=== PATIENT | male | born 1940 | race Caucasian/White ===

== ENCOUNTER 2016-08-10 18:40 | Emergency (ER) | payer MEDICARE, BC ==
[2016-08-10 18:57] VITALS: BP 134/62
--- NOTE | 2016-08-10 19:06 | EDM.PDOC ---
ED HPI GENERAL MEDICAL PROBLEM - General Chief Complaint: Lower Extremity Injury/Pain Stated Complaint: SLIVER IN BIG TOE Time Seen by Provider: 08/10/16 19:06 - History of Present Illness INITIAL COMMENTS - FREE TEXT/NARRATIVE: 76-year-old male presents to the emergency room with a infection in his right great toe. Patient punctured this toe with a toothpick on Thursday he is unsure if all the toothpick came out. He has figured this would get better on its own however the swelling and tenderness is getting worse today he had streaking up his foot. The patient did try soaking his foot in Epsom salts and this did help a little. Patient is otherwise doing okay no fevers or chills he does not feel sick. 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 Pain Score (Numeric/FACES): 1 - Related Data Allergies Allergy/AdvReac Type Severity Reaction Status Date / Time No Known Allergies Allergy Verified 08/10/16 18:57 Home Meds: Home Meds Acetaminophen [Tylenol Extra Strength] 1,000 mg PO Q6H 01/02/15 [History] Aspirin [Adult Low Dose Aspirin EC] 81 mg PO DAILY 01/02/15 [History] Levothyroxine 137 mcg PO ACBREAKFAST 01/02/15 [History] Metoprolol Tartrate 12.5 mg PO BID 01/02/15 [History] Nitroglycerin [Nitrostat] 0.4 mg SL Q5M 01/02/15 [History] Simvastatin [Zocor] 20 mg PO BEDTIME 01/02/15 [History] Clindamycin Hcl [IJD: Clindamycin HCl] 300 mg PO .EVERY 6 HOURS #40 cap [Rx] Cyanocobalamin (Vitamin B-12) [B-12] 1,000 mcg PO DAILY 08/10/16 [History] Epoetin Redd [Procrit] 40,000 unit IJ ASDIRECTED 08/10/16 [History] Past Medical History HEENT History: Reports: Impaired Vision Cardiovascular History: Reports: Bypass, CAD, High Cholesterol, Hypertension Endocrine/Metabolic History: Reports: Hypothyroidism Hematologic History: 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 Denies: Chills, Fever Respiratory: Reports: No Symptoms Cardiovascular: Reports: No Symptoms GI/Abdominal: Reports: No Symptoms Genitourinary: Reports: No Symptoms Neurological: Reports: No Symptoms ED EXAM, GENERAL - Physical Exam Exam: See Below Exam Limited By: No Limitations General Appearance: Alert, No Apparent Distress Head: Atraumatic, Normocephalic Neck: Normal Inspection, Supple, Non-Tender, Full Range of Motion. No: Lymphadenopathy (L), Lymphadenopathy (R) Respiratory/Chest: No Respiratory Distress, Lungs Clear, Normal Breath Sounds Cardiovascular: Regular Rate, Rhythm, No Edema, No Murmur Extremities: Other (Examination of his right foot shows intact neurovascular status is got a tender red swollen great toe puncture site identified no foreign body residual seen at the puncture site no obvious abscess patient has some redness streaking up the dorsum of his foot not quite to the level of the ankle.) Neurological: Alert, Oriented Course - Vital Signs Last Recorded V/S: Last Vital Signs Temp 36.7 C 08/10/16 18:52 Pulse 81 08/10/16 18:52 Resp 18 08/10/16 18:52 BP 134/62 08/10/16 18:52 Pulse Ox 99 08/10/16 18:52 - Orders/Labs/Meds Orders: Active Orders 24 hr Category Date Time Status Toes Great Toe Rt T5 [CR] Stat Exams 08/10/16 19:16 Taken CULTURE WOUND [RM] Stat Lab 08/10/16 21:05 Received Labs: Laboratory Tests 08/10/16 08/10/16 08/10/16 Range/Units 19:20 19:20 19:20 WBC 9.45 H (4.23-9.07) K/mm3 RBC 2.48 L (4.63-6.08) M/mm3 Hgb 9.4 L (13.7-17.5) gm/L Hct 28.9 L (40.1-51.0) % MCV 116.5 H (79.0-92.2) fl MCH 37.9 H (25.7-32.2) pg MCHC 32.5 (32.2-35.5) g/dl RDW Std Deviation 80.9 H (35.1-43.9) fL Plt Count 120 L (163-337) K/mm3 MPV 9.5 (9.4-12.3) fl Neutrophils % (Manual) 70 H (40-60) % Band Neutrophils % 1 (0-10) % Lymphocytes % (Manual) 20 (20-40) % Atypical Lymphs % 0 % Monocytes % (Manual) 6 (2-10) % Eosinophils % (Manual) 2 (0.8-7.0) % Basophils % (Manual) 0 L (0.2-1.2) Metamyelocytes % 1 Toxic Granulation Moderate Dohle Bodies Few Platelet Estimate Decreased Plt Morphology Comment Normal Polychromasia Few Basophilic Stippling Few Anisocytosis 3+ marked Macrocytosis 3+ marked Tear Drop Cells Few Ovalocytes Few Acanthocytes (Spur) Few Schistocytes Few RBC Morph Comment Not Reportable ESR 62 H (0-15) mm/hr Sodium 137 (136-145) mEq/L Potassium 5.0 (3.5-5.1) mEq/L Chloride 103 (98-107) mEq/L Carbon Dioxide 25 (21-32) mEq/L Anion Gap 14.0 (5-15) BUN 17 (7-18) mg/dL Creatinine 1.2 (0.7-1.3) mg/dL Est Cr Clr Drug Dosing 48.96 mL/min Estimated GFR (MDRD) 59 (>60) mL/min BUN/Creatinine Ratio 14.2 (14-18) Glucose 132 H (83-115) mg/dL Calcium 8.4 L (8.5-10.1) mg/dL Total Bilirubin 0.8 (0.2-1.0) mg/dL AST 11 L (15-37) U/L ALT 11 L (16-63) U/L Alkaline Phosphatase 87 (46-116) U/L Total Protein 7.9 (6.4-8.2) g/dl Albumin 3.7 (3.4-5.0) g/dl Globulin 4.2 gm/dL Albumin/Globulin Ratio 0.9 L (1-2) Meds: Medications Discontinued Medications Generic Name Dose Route Start Last Admin Trade Name Zach PRN Reason Stop Dose Admin Clindamycin Phosphate 600 mg/ 104 mls @ 100 mls/hr 08/10/16 21:48 08/10/16 22 :16 Sodium Chloride IV 08/10/16 22:50 100 mls/hr ONETIME ONE Administration Lidocaine HCl 50 ml 08/10/16 20:34 08/10/16 22:18 Xylocaine 1% INJECT 08/10/16 20:35 50 ml ONETIME ONE Administration - Re-Assessments/Exams Free Text/Narrative Re-Assessment/Exam: 08/10/16 21:46 X-ray reviewed which shows a suspected foreign body just to the radial side of the mid proximal phalanx. I did do a digital block opened up the puncture wound could not find the toothpick or any fragments. Did get some exudative material out this is sent for culture and sensitivity. Patient's case discussed with Dr. Cline who does not do stuff like this. Case discussed with Dr. Funes orthopedic data migration lead at [facility] in [place] as we don't have anybody on-call for orthopedics who recommends more formal incision and drainage in the morning. We' ll give him a dose of IV clindamycin now and then the patient will follow up at [facility] at 8:00 tomorrow morning. Departure - Departure Time of Disposition: 23:32 Disposition: Home, Self-Care 01 Clinical Impression: Splinter of toe of right foot with infection, Cellulitis of right foot - Discharge Information Prescriptions: Clindamycin Hcl [IJD: Clindamycin HCl] 300 mg PO .EVERY 6 HOURS #40 cap Referrals: Ankit Sadler MD [Primary Care Provider] - Forms: ED Department Discharge Additional Instructions: ED HPI GENERAL MEDICAL PROBLEM - General Chief Complaint: Lower Extremity Injury/Pain Stated Complaint: SLIVER IN BIG TOE Time Seen by Provider: 08/10/16 19:06 - History of Present Illness INITIAL COMMENTS - FREE TEXT/NARRATIVE: 76-year-old male presents to the emergency room with a infection in his right great toe. Patient punctured this toe with a toothpick on Thursday he is unsure if all the toothpick came out. He has figured this would get better on its own however the swelling and tenderness is getting worse today he had streaking up his foot. The patient did try soaking his foot in Epsom salts and this did help a little. Patient is otherwise doing okay no fevers or chills he does not feel sick. 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 Pain Score (Numeric/FACES): 1 - Related Data Allergies Allergy/AdvReac Type Severity Reaction Status Date / Time No Known Allergies Allergy Verified 08/10/16 18:57 Home Meds: Home Meds Acetaminophen [Tylenol Extra Strength] 1,000 mg PO Q6H 01/02/15 [History] Aspirin [Adult Low Dose Aspirin EC] 81 mg PO DAILY 01/02/15 [History] Levothyroxine 137 mcg PO ACBREAKFAST 01/02/15 [History] Metoprolol Tartrate 12.5 mg PO BID 01/02/15 [History] Nitroglycerin [Nitrostat] 0.4 mg SL Q5M 01/02/15 [History] Simvastatin [Zocor] 20 mg PO BEDTIME 01/02/15 [History] Clindamycin Hcl [IJD: Clindamycin HCl] 300 mg PO .EVERY 6 HOURS #40 cap [Rx] Cyanocobalamin (Vitamin B-12) [B-12] 1,000 mcg PO DAILY 08/10/16 [History] Epoetin Redd [Procrit] 40,000 unit IJ ASDIRECTED 08/10/16 [History] Past Medical History HEENT History: Reports: Impaired Vision Cardiovascular History: Reports: Bypass, CAD, High Cholesterol, Hypertension Endocrine/Metabolic History: Reports: Hypothyroidism Hematologic History: 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 Denies: Chills, Fever Respiratory: Reports: No Symptoms Cardiovascular: Reports: No Symptoms GI/Abdominal: Reports: No Symptoms Genitourinary: Reports: No Symptoms Neurological: Reports: No Symptoms ED EXAM, GENERAL - Physical Exam Exam: See Below Exam Limited By: No Limitations General Appearance: Alert, No Apparent Distress Head: Atraumatic, Normocephalic Neck: Normal Inspection, Supple, Non-Tender, Full Range of Motion. No: Lymphadenopathy (L), Lymphadenopathy (R) Respiratory/Chest: No Respiratory Distress, Lungs Clear, Normal Breath Sounds Cardiovascular: Regular Rate, Rhythm, No Edema, No Murmur Extremities: Other (Examination of his right foot shows intact neurovascular status is got a tender red swollen great toe puncture site identified no foreign body residual seen at the puncture site no obvious abscess patient has some redness streaking up the dorsum of his foot not quite to the level of the ankle.) Neurological: Alert, Oriented Course - Vital Signs Last Recorded V/S: Last Vital Signs Temp 36.7 C 08/10/16 18:52 Pulse 81 08/10/16 18:52 Resp 18 08/10/16 18:52 BP 134/62 08/10/16 18:52 Pulse Ox 99 08/10/16 18:52 - Orders/Labs/Meds Orders: Active Orders 24 hr Category Date Time Status Toes Great Toe Rt T5 [CR] Stat Exams 08/10/16 19:16 Taken Labs: Laboratory Tests 08/10/16 08/10/16 08/10/16 Range/Units 19:20 19:20 19:20 WBC 9.45 H (4.23-9.07) K/mm3 RBC 2.48 L (4.63-6.08) M/mm3 Hgb 9.4 L (13.7-17.5) gm/L Hct 28.9 L (40.1-51.0) % MCV 116.5 H (79.0-92.2) fl MCH 37.9 H (25.7-32.2) pg MCHC 32.5 (32.2-35.5) g/dl RDW Std Deviation 80.9 H (35.1-43.9) fL Plt Count 120 L (163-337) K/mm3 MPV 9.5 (9.4-12.3) fl Neutrophils % (Manual) 70 H (40-60) % Band Neutrophils % 1 (0-10) % Lymphocytes % (Manual) 20 (20-40) % Atypical Lymphs % 0 % Monocytes % (Manual) 6 (2-10) % Eosinophils % (Manual) 2 (0.8-7.0) % Basophils % (Manual) 0 L (0.2-1.2) Metamyelocytes % 1 Toxic Granulation Moderate Dohle Bodies Few Platelet Estimate Decreased Plt Morphology Comment Normal Polychromasia Few Basophilic Stippling Few Anisocytosis 3+ marked Macrocytosis 3+ marked Tear Drop Cells Few Ovalocytes Few Acanthocytes (Spur) Few Schistocytes Few RBC Morph Comment Not Reportable ESR 62 H (0-15) mm/hr Sodium 137 (136-145) mEq/L Potassium 5.0 (3.5-5.1) mEq/L Chloride 103 (98-107) mEq/L Carbon Dioxide 25 (21-32) mEq/L Anion Gap 14.0 (5-15) BUN 17 (7-18) mg/dL Creatinine 1.2 (0.7-1.3) mg/dL Est Cr Clr Drug Dosing 48.96 mL/min Estimated GFR (MDRD) 59 (>60) mL/min BUN/Creatinine Ratio 14.2 (14-18) Glucose 132 H (83-115) mg/dL Calcium 8.4 L (8.5-10.1) mg/dL Total Bilirubin 0.8 (0.2-1.0) mg/dL AST 11 L (15-37) U/L ALT 11 L (16-63) U/L Alkaline Phosphatase 87 (46-116) U/L Total Protein 7.9 (6.4-8.2) g/dl Albumin 3.7 (3.4-5.0) g/dl Globulin 4.2 gm/dL Albumin/Globulin Ratio 0.9 L (1-2) Meds: Medications Discontinued Medications Generic Name Dose Route Start Last Admin Trade Name Freq PRN Reason Stop Dose Admin Clindamycin Phosphate 600 mg/ 104 mls @ 100 mls/hr 08/10/16 21:48 08/10/16 22 :16 Sodium Chloride IV 08/10/16 22:50 100 mls/hr ONETIME ONE Administration Lidocaine HCl 50 ml 08/10/16 20:34 08/10/16 22:18 Xylocaine 1% INJECT 08/10/16 20:35 50 ml ONETIME ONE Administration - Re-Assessments/Exams Free Text/Narrative Re-Assessment/Exam: 08/10/16 21:46 X-ray reviewed which shows a suspected foreign body just to the radial side of the mid proximal phalanx. I did do a digital block opened up the puncture wound could not find the toothpick or any fragments. Did get some exudative material out this is sent for culture and sensitivity. Patient's case discussed with Dr. Cline who does not do stuff like this. Case discussed with Dr. Funes orthopedic data migration lead at [facility] in [place] as we don't have anybody on-call for orthopedics who recommends more formal incision and drainage in the morning. We' ll give him a dose of IV clindamycin now and then the patient will follow up at [facility] at 8:00 tomorrow morning. Departure - Departure Disposition: Home, Self-Care 01 Clinical Impression: Splinter of toe of right foot with infection, Cellulitis of right foot - Discharge Information Prescriptions: Clindamycin Hcl [IJD: Clindamycin HCl] 300 mg PO .EVERY 6 HOURS #40 cap Forms: ED Department Discharge - My Orders Last 24 Hours: My Active Orders 08/10/16 19:16 Toes Great Toe Rt T5 [CR] Stat - Assessment/Plan Last 24 Hours: My Active Orders 08/10/16 19:16 Toes Great Toe Rt T5 [CR] Stat ED HPI GENERAL MEDICAL PROBLEM - General Chief Complaint: Lower Extremity Injury/Pain Stated Complaint: SLIVER IN BIG TOE Time Seen by Provider: 08/10/16 19:06 - History of Present Illness INITIAL COMMENTS - FREE TEXT/NARRATIVE: 76-year-old male presents to the emergency room with a infection in his right great toe. Patient punctured this toe with a toothpick on Thursday he is unsure if all the toothpick came out. He has figured this would get better on its own however the swelling and tenderness is getting worse today he had streaking up his foot. The patient did try soaking his foot in Epsom salts and this did help a little. Patient is otherwise doing okay no fevers or chills he does not feel sick. 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 Pain Score (Numeric/FACES): 1 - Related Data Allergies Allergy/AdvReac Type Severity Reaction Status Date / Time No Known Allergies Allergy Verified 08/10/16 18:57 Home Meds: Home Meds Acetaminophen [Tylenol Extra Strength] 1,000 mg PO Q6H 01/02/15 [History] Aspirin [Adult Low Dose Aspirin EC] 81 mg PO DAILY 01/02/15 [History] Levothyroxine 137 mcg PO ACBREAKFAST 01/02/15 [History] Metoprolol Tartrate 12.5 mg PO BID 01/02/15 [History] Nitroglycerin [Nitrostat] 0.4 mg SL Q5M 01/02/15 [History] Simvastatin [Zocor] 20 mg PO BEDTIME 01/02/15 [History] Clindamycin Hcl [IJD: Clindamycin HCl] 300 mg PO .EVERY 6 HOURS #40 cap [Rx] Cyanocobalamin (Vitamin B-12) [B-12] 1,000 mcg PO DAILY 08/10/16 [History] Epoetin Redd [Procrit] 40,000 unit IJ ASDIRECTED 08/10/16 [History] Past Medical History HEENT History: Reports: Impaired Vision Cardiovascular History: Reports: Bypass, CAD, High Cholesterol, Hypertension Endocrine/Metabolic History: Reports: Hypothyroidism Hematologic History: 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 Denies: Chills, Fever Respiratory: Reports: No Symptoms Cardiovascular: Reports: No Symptoms GI/Abdominal: Reports: No Symptoms Genitourinary: Reports: No Symptoms Neurological: Reports: No Symptoms ED EXAM, GENERAL - Physical Exam Exam: See Below Exam Limited By: No Limitations General Appearance: Alert, No Apparent Distress Head: Atraumatic, Normocephalic Neck: Normal Inspection, Supple, Non-Tender, Full Range of Motion. No: Lymphadenopathy (L), Lymphadenopathy (R) Respiratory/Chest: No Respiratory Distress, Lungs Clear, Normal Breath Sounds Cardiovascular: Regular Rate, Rhythm, No Edema, No Murmur Extremities: Other (Examination of his right foot shows intact neurovascular status is got a tender red swollen great toe puncture site identified no foreign body residual seen at the puncture site no obvious abscess patient has some redness streaking up the dorsum of his foot not quite to the level of the ankle.) Neurological: Alert, Oriented Course - Vital Signs Last Recorded V/S: Last Vital Signs Temp 36.7 C 08/10/16 18:52 Pulse 81 08/10/16 18:52 Resp 18 08/10/16 18:52 BP 134/62 08/10/16 18:52 Pulse Ox 99 08/10/16 18:52 - Orders/Labs/Meds Orders: Active Orders 24 hr Category Date Time Status Toes Great Toe Rt T5 [CR] Stat Exams 08/10/16 19:16 Taken Labs: Laboratory Tests 08/10/16 08/10/16 08/10/16 Range/Units 19:20 19:20 19:20 WBC 9.45 H (4.23-9.07) K/mm3 RBC 2.48 L (4.63-6.08) M/mm3 Hgb 9.4 L (13.7-17.5) gm/L Hct 28.9 L (40.1-51.0) % MCV 116.5 H (79.0-92.2) fl MCH 37.9 H (25.7-32.2) pg MCHC 32.5 (32.2-35.5) g/dl RDW Std Deviation 80.9 H (35.1-43.9) fL Plt Count 120 L (163-337) K/mm3 MPV 9.5 (9.4-12.3) fl Neutrophils % (Manual) 70 H (40-60) % Band Neutrophils % 1 (0-10) % Lymphocytes % (Manual) 20 (20-40) % Atypical Lymphs % 0 % Monocytes % (Manual) 6 (2-10) % Eosinophils % (Manual) 2 (0.8-7.0) % Basophils % (Manual) 0 L (0.2-1.2) Metamyelocytes % 1 Toxic Granulation Moderate Dohle Bodies Few Platelet Estimate Decreased Plt Morphology Comment Normal Polychromasia Few Basophilic Stippling Few Anisocytosis 3+ marked Macrocytosis 3+ marked Tear Drop Cells Few Ovalocytes Few Acanthocytes (Spur) Few Schistocytes Few RBC Morph Comment Not Reportable ESR 62 H (0-15) mm/hr Sodium 137 (136-145) mEq/L Potassium 5.0 (3.5-5.1) mEq/L Chloride 103 (98-107) mEq/L Carbon Dioxide 25 (21-32) mEq/L Anion Gap 14.0 (5-15) BUN 17 (7-18) mg/dL Creatinine 1.2 (0.7-1.3) mg/dL Est Cr Clr Drug Dosing 48.96 mL/min Estimated GFR (MDRD) 59 (>60) mL/min BUN/Creatinine Ratio 14.2 (14-18) Glucose 132 H (83-115) mg/dL Calcium 8.4 L (8.5-10.1) mg/dL Total Bilirubin 0.8 (0.2-1.0) mg/dL AST 11 L (15-37) U/L ALT 11 L (16-63) U/L Alkaline Phosphatase 87 (46-116) U/L Total Protein 7.9 (6.4-8.2) g/dl Albumin 3.7 (3.4-5.0) g/dl Globulin 4.2 gm/dL Albumin/Globulin Ratio 0.9 L (1-2) Meds: Medications Discontinued Medications Generic Name Dose Route Start Last Admin Trade Name Freq PRN Reason Stop Dose Admin Clindamycin Phosphate 600 mg/ 104 mls @ 100 mls/hr 08/10/16 21:48 08/10/16 22 :16 Sodium Chloride IV 08/10/16 22:50 100 mls/hr ONETIME ONE Administration Lidocaine HCl 50 ml 08/10/16 20:34 08/10/16 22:18 Xylocaine 1% INJECT 08/10/16 20:35 50 ml ONETIME ONE Administration - Re-Assessments/Exams Free Text/Narrative Re-Assessment/Exam: 08/10/16 21:46 X-ray reviewed which shows a suspected foreign body just to the radial side of the mid proximal phalanx. I did do a digital block opened up the puncture wound could not find the toothpick or any fragments. Did get some exudative material out this is sent for culture and sensitivity. Patient's case discussed with Dr. Cline who does not do stuff like this. Case discussed with Dr. Funes orthopedic data migration lead at [facility] in [place] as we don't have anybody on-call for orthopedics who recommends more formal incision and drainage in the morning. We' ll give him a dose of IV clindamycin now and then the patient will follow up at [facility] at 8:00 tomorrow morning. Departure - Departure Disposition: Home, Self-Care Clinical Impression: Splinter of toe of right foot with infection, Cellulitis of right foot - Discharge Information Prescriptions: Clindamycin Hcl [IJD: Clindamycin HCl] 300 mg PO .EVERY 6 HOURS #40 cap Forms: ED Department Discharge - My Orders Last 24 Hours: My Active Orders 08/10/16 19:16 Toes Great Toe Rt T5 [CR] Stat - Assessment/Plan Last 24 Hours: My Active Orders 08/10/16 19:16 Toes Great Toe Rt T5 [CR] Stat Return to the emergency room with any questions problems or worsening symptoms. Nothing to eat or drink after midnight. Follow-up with [facility] tomorrow morning at 8:00 [place] time. [phone] Dr. Funes or his team. - My Orders Last 24 Hours: My Active Orders 08/10/16 19:16 Toes Great Toe Rt T5 [CR] Stat 08/10/16 21:05 CULTURE WOUND [RM] Stat - Assessment/Plan Last 24 Hours: My Active Orders 08/10/16 19:16 Toes Great Toe Rt T5 [CR] Stat 08/10/16 21:05 CULTURE WOUND [RM] Stat
[2016-08-10] MEDS ORDERED: Lidocaine 1% 50 ML MDV INJECT ONE (20:34)
[2016-08-10] MEDS ORDERED: Clindamycin Phosphate 600 MG in Sodium Chloride 0.9% 100 ML IV ONE (21:48)
--- NOTE | 2016-08-11 14:37 | CR ---
Right first toe: Four views of the right first toe were obtained. Slight degenerative change noted within the first MTP joint. Mild vascular calcification is noted. No acute fracture or other abnormality is seen. Soft tissue swelling is noted. Impression: 1. Incidental findings. Nothing acute is identified. 2. Soft tissue swelling. Diagnostic code #2
== END 2016-08-10 23:45 | disposition home or self-care (01) ==
LOC: JD.ED 18:40
DX: S91.141A Puncture wound with foreign body of right great toe without damage to nail, initial encounter (principal); L03.031 Cellulitis of right toe; E78.00 Pure hypercholesterolemia, unspecified; I10 Essential (primary) hypertension; I25.810 Atherosclerosis of coronary artery bypass graft(s) without angina pectoris; E03.9 Hypothyroidism, unspecified; Z79.82 Long term (current) use of aspirin; Z79.899 Other long term (current) drug therapy; W45.8XXA Other foreign body or object entering through skin, initial encounter
CPT/HCPCS: 36415; 64450; 73660; 80053; 85025; 85652; 87070; 96365; 99284; J7030; 10120; 87077; 87184

== ENCOUNTER 2016-12-17 10:00 | Emergency (ER) | payer MEDICARE, BC ==
[2016-12-17] MEDS ORDERED: Sodium Chloride 0.9% 10 ML Syringe FLUSH PRN (10:21)
--- NOTE | 2016-12-17 10:22 | EDM.PDOC ---
ED HPI GENERAL MEDICAL PROBLEM - General Chief Complaint: Cardiovascular Problem Stated Complaint: DIZZY Time Seen by Provider: 12/17/16 10:14 Source of Information: Reports: Patient, Family History Limitations: Reports: No Limitations - History of Present Illness INITIAL COMMENTS - FREE TEXT/NARRATIVE: The patient presents with dizziness, chest pain and shortness of breath with exertion. This has been going on for a few days. The patient has myelodysplastic syndrome and he has been treated by Dr Mustafa the oncologist here at [facility] in [place]. He has been anemic and required some transfusions in the past. He had CABG and needed to be transferred to [facility] to have it done. He denies fever, chills, cough, abdominal pain, nausea or vomiting. He has been on decitabine for the mylodysplastic syndrome. Onset: Gradual Duration: Day(s): Location: Reports: Chest Quality: Reports: Pressure Severity: Mild Improves with: Reports: Immobilization Worsens with: Reports: Movement Context: Reports: Activity (Exertion makes the pain worse) Associated Symptoms: Reports: Chest Pain, Shortness of Breath. Denies: Cough, Fever/Chills, Nausea/Vomiting - Related Data Allergies Allergy/AdvReac Type Severity Reaction Status Date / Time No Known Allergies Allergy Verified 12/17/16 10:23 Home Meds: Home Meds Acetaminophen [Tylenol Extra Strength] 1,000 mg PO Q6H 01/02/15 [History] Aspirin [Adult Low Dose Aspirin EC] 81 mg PO DAILY 01/02/15 [History] Levothyroxine 137 mcg PO ACBREAKFAST 01/02/15 [History] Metoprolol Tartrate 12.5 mg PO BID 01/02/15 [History] Nitroglycerin [Nitrostat] 0.4 mg SL Q5M 01/02/15 [History] Simvastatin [Zocor] 20 mg PO BEDTIME 01/02/15 [History] Cyanocobalamin (Vitamin B-12) [B-12] 1,000 mcg PO DAILY 08/10/16 [History] Epoetin Redd [Procrit] 40,000 unit INJECT ASDIRECTED 08/10/16 [History] Past Medical History HEENT History: Reports: Impaired Vision Cardiovascular History: Reports: Bypass, CAD, High Cholesterol, Hypertension Endocrine/Metabolic History: Reports: Hypothyroidism Hematologic History: Reports: Bleeding Disorder Other Hematologic History: takes procrit Immunologic History: Reports: Other (See Below) Other Immunologic History: patient is on procrit - Past Surgical History Cardiovascular Surgical History: Reports: Coronary Artery Bypass Social & Family History - Family History Family Medical History: Noncontributory - Tobacco Use Smoking Status *Q: Never Smoker Second Hand Smoke Exposure: No - Caffeine Use Caffeine Use: Reports: Coffee - Recreational Drug Use Recreational Drug Use: No ED ROS GENERAL - Review of Systems Review Of Systems: See Below Constitutional: Reports: No Symptoms HEENT: Reports: No Symptoms Respiratory: Reports: Shortness of Breath Cardiovascular: Reports: Chest Pain, Lightheadedness Endocrine: Reports: No Symptoms GI/Abdominal: Reports: No Symptoms : Reports: No Symptoms Musculoskeletal: Reports: No Symptoms ED EXAM, GENERAL - Physical Exam Exam: See Below Exam Limited By: No Limitations General Appearance: Alert, No Apparent Distress Ears: Normal External Exam Nose: Normal Inspection Head: Atraumatic, Normocephalic Neck: Normal Inspection Respiratory/Chest: No Respiratory Distress, Lungs Clear, Normal Breath Sounds Cardiovascular: Regular Rate, Rhythm, No Edema, No Murmur GI/Abdominal: Soft, Non-Tender, No Organomegaly, No Mass Back Exam: Normal Inspection Extremities: Normal Inspection Neurological: Alert, Oriented, No Motor/Sensory Deficits Skin Exam: Pallor EKG INTERPRETATION EKG Date: 12/17/16 Time: 10:29 Rhythm: NSR Rate (Beats/Min): 75 Bradford: Normal P-Wave: Present QRS: Normal ST-T: Normal QT: Normal Course - Vital Signs Last Recorded V/S: Last Vital Signs Temp 97.4 F 12/17/16 10:15 Pulse 90 12/17/16 10:15 Resp 16 12/17/16 10:15 BP 118/42 L 12/17/16 10:15 Pulse Ox 100 12/17/16 10:15 - Orders/Labs/Meds Orders: Active Orders 24 hr Category Date Time Status Cardiac Monitoring [RC] . DIRECTED Care 12/17/16 10:21 Active EKG Documentation Completion [RC] STAT Care 12/17/16 10:21 Active Oxygen Therapy [RC] PRN Care 12/17/16 10:21 Active Peripheral IV Care [RC] . DIRECTED Care 12/17/16 10:21 Active Sodium Chloride 0.9% [Saline Flush] Med 12/17/16 10:21 Active 10 ml FLUSH ASDIRECTED PRN Peripheral IV Insertion Adult [OM.PC] Stat Oth 12/17/16 10:21 Ordered Medication Orders Sodium Chloride (Saline Flush) 10 ml FLUSH ASDIRECTED PRN PRN Reason: Keep Vein Open Last Admin: 12/17/16 11:15 Dose: 10 ml Labs: Laboratory Tests 12/17/16 12/17/16 12/17/16 Range/Units 10:35 10:35 10:35 WBC 1.42 L* (4.23-9.07) K/mm3 RBC 1.01 L (4.63-6.08) M/mm3 Hgb 3.4 L* (13.7-17.5) gm/L Hct 10.6 L (40.1-51.0) % MCV 105.0 H (79.0-92.2) fl MCH 33.7 H (25.7-32.2) pg MCHC 32.1 L (32.2-35.5) g/dl RDW Std Deviation 62.3 H (35.1-43.9) fL Plt Count 7 L* (163-337) K/mm3 MPV 11.5 (9.4-12.3) fl Neut % (Auto) 54.3 (34.0-67.9) % Lymph % (Auto) 40.1 (21.8-53.1) % [place] % (Auto) 3.5 L (5.3-12.2) % Eos % (Auto) 1.4 (0.8-7.0) Baso % (Auto) 0.0 L (0.1-1.2) % Neut # (Auto) 0.77 L (1.78-5.38) K/mm3 Lymph # (Auto) 0.57 L (1.32-3.57) K/mm3 [place] # (Auto) 0.05 L (0.30-0.82) K/mm3 Eos # (Auto) 0.02 L (0.04-0.54) K/mm3 Baso # (Auto) 0.00 L (0.01-0.08) K/mm3 Manual Slide Review Abnormal smear Sodium 142 (136-145) mEq/L Potassium 4.3 (3.5-5.1) mEq/L Chloride 110 H (98-107) mEq/L Carbon Dioxide 22 (21-32) mEq/L Anion Gap 14.3 (5-15) BUN 20 H (7-18) mg/dL Creatinine 1.2 (0.7-1.3) mg/dL Est Cr Clr Drug Dosing 42.15 mL/min Estimated GFR (MDRD) 59 (>60) mL/min BUN/Creatinine Ratio 16.7 (14-18) Glucose 140 H (83-115) mg/dL Calcium 8.3 L (8.5-10.1) mg/dL Total Bilirubin 0.6 (0.2-1.0) mg/dL AST 8 L (15-37) U/L ALT 12 L (16-63) U/L Alkaline Phosphatase 125 H (46-116) U/L Troponin I 0.022 (0.00-0.056) ng/mL Total Protein 7.4 (6.4-8.2) g/dl Albumin 3.1 L (3.4-5.0) g/dl Globulin 4.3 gm/dL Albumin/Globulin Ratio 0.7 L (1-2) Blood Type O POSITIVE Gel Antibody Screen Negative Meds: Medications Generic Name Dose Route Start Last Admin Trade Name Freq PRN Reason Stop Dose Admin Sodium Chloride 10 ml 12/17/16 10:21 12/17/16 11:15 Saline Flush FLUSH 10 ml ASDIRECTED PRN Administration Keep Vein Open - Re-Assessments/Exams Free Text/Narrative Re-Assessment/Exam: 12/17/16 13:55 I ordered an IV saline lock, labs, EKG, CXR and type and screen him. His EKG shows a NSR with no acute changes. His CXR shows nothing acute. His WBC was low at 1.42. His Hgb was low at 3.4. His platelets were low at 7. His glucose was 140. His Alk Phos was elevated at 125. His troponin was negative. He is pancytopenic. He needs a transfusion of PRBCs and possibly platelets. I called [facility] and Dr Solitario would accept but she wanted me to check with his oncologist to see what antibodies he has. I called Dr Mustafa his oncologist and she confirmed he has mylodysplastic syndrome and he is on decitabine. He did get transfusions but none lately. He has anti-jkA antibodies and he needs IGA deficient blood or wash blood. She thought it would be better if the patient would go to [facility] because they have all of his records. I talked with the patient and he was okay with that. I called [facility] in [place] and Dr Cody did accept him. I did call their lab to let them know what was going on and they thought it would be best he go to [facility]. Sam at one call in [place] was calling [facility] and we talked with the oncologist there and Dr Cody in [place]. They were checking on some things and they will get back to me. 12/17/16 14:47 Dr Son accepted him in [place]. He will need to go by airplane because he is so low and he needs blood. 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 DIRECTED EKG Documentation Completion [RC] STAT Oxygen Therapy [RC] PRN Peripheral IV Care [RC] . DIRECTED Sodium Chloride 0.9% [Saline Flush] 10 ml FLUSH ASDIRECTED PRN Peripheral IV Insertion Adult [OM.PC] Stat - Assessment/Plan Last 24 Hours: My Active Orders 12/17/16 10:21 Cardiac Monitoring [RC] . DIRECTED EKG Documentation Completion [RC] STAT Oxygen Therapy [RC] PRN Peripheral IV Care [RC] . DIRECTED Sodium Chloride 0.9% [Saline Flush] 10 ml FLUSH ASDIRECTED PRN Peripheral IV Insertion Adult [OM.PC] Stat
[2016-12-17 10:23] VITALS: BP 118/42
--- NOTE | 2016-12-17 11:19 | CR ---
Chest: Portable view of the chest was obtained. Comparison: Prior chest x-ray of 03/01/13. Heart size appears within normal limits for portable technique. Sternotomy is noted for CABG which is an interval change from previous exam. Previous cervical spine surgery is also noted. Lungs are clear. Impression: 1. Findings as noted above. Nothing acute is identified on portable chest x-ray. Diagnostic code #2
== END 2016-12-17 15:05 ==
LOC: JD.ED 10:00
DX: D70.1 Agranulocytosis secondary to cancer chemotherapy (principal); D69.6 Thrombocytopenia, unspecified; E03.9 Hypothyroidism, unspecified; C94.6 Myelodysplastic disease, not elsewhere classified; I10 Essential (primary) hypertension; E78.00 Pure hypercholesterolemia, unspecified; I25.10 Atherosclerotic heart disease of native coronary artery without angina pectoris; Z79.82 Long term (current) use of aspirin; Z79.899 Other long term (current) drug therapy; Z95.5 Presence of coronary angioplasty implant and graft
CPT/HCPCS: 36415; 71010; 80053; 84484; 85025; 86850; 86900; 86901; 93005; 99285; J7050; 93010

== ENCOUNTER 2021-08-03 13:38 | Emergency (ER) | payer MEDICARE, BC ==
[2021-08-03] MEDS ORDERED: Sodium Chloride 0.9% 10 ML Syringe FLUSH PRN (14:17)
[2021-08-03 15:29] VITALS: BP 103/56; PULSE 56
== END 2021-08-03 15:29 | disposition home or self-care (01) ==
LOC: JD.ED 13:38
DX: D61.82 Myelophthisis (principal); D46.9 Myelodysplastic syndrome, unspecified; I25.10 Atherosclerotic heart disease of native coronary artery without angina pectoris; E78.00 Pure hypercholesterolemia, unspecified; I10 Essential (primary) hypertension; E03.9 Hypothyroidism, unspecified; Z88.8 Allergy status to other drugs, medicaments and biological substances; Z79.899 Other long term (current) drug therapy; Z95.1 Presence of aortocoronary bypass graft
CPT/HCPCS: 99284; J3490; 36415; 80053; 85025; 99283

== ENCOUNTER 2024-10-13 07:30 | Day surgery (SDC) | payer BC, MEDICARE ==
[2024-10-13] MEDS: Polymyxin B/Trimethoprim 10 ML Bottle EYELF SCH (07:24)
[2024-10-13 07:27] VITALS: BP 146/76; PULSE 73
[2024-10-13] MEDS: Tropicamide 1% Ophth Soln 3 ML Bottle EYELF SCH (07:40)
[2024-10-13] MEDS: Tetracaine HCl/PF 0.5% 4 ML Bottle EYEBOTH SCH (09:16)
[2024-10-13] MEDS: Lidocaine 1% PF 2 ML SDV INJECT SCH (09:38)
[2024-10-13] MEDS: Cefuroxime 10 MG/ML SYRINGE EYELF SCH (09:54)
[2024-10-13] MEDS: Pilocarpine 4% Ophth Soln 15 ML Bot EYELF SCH (09:55)
== END 2024-10-13 10:00 ==
LOC: JD.SDS 07:30
PROVIDERS: ATTEND Ophthalmology
DX: H25.813 Combined forms of age-related cataract, bilateral (principal); H16.223 Keratoconjunctivitis sicca, not specified as Sjogren's, bilateral; H02.834 Dermatochalasis of left upper eyelid; H02.831 Dermatochalasis of right upper eyelid; H57.813 Brow ptosis, bilateral; H43.813 Vitreous degeneration, bilateral; I10 Essential (primary) hypertension; I25.10 Atherosclerotic heart disease of native coronary artery without angina pectoris; E03.9 Hypothyroidism, unspecified; Z79.82 Long term (current) use of aspirin; Z79.899 Other long term (current) drug therapy; Z79.890 Hormone replacement therapy
CPT/HCPCS: 66984; A9270; J0697; J2003; 00142; 99100; J3490; V2632

== ENCOUNTER 2024-11-10 08:51 | Day surgery (SDC) | payer BC, MEDICARE ==
[2024-11-10] MEDS: Tetracaine HCl/PF 0.5% 4 ML Bottle EYEBOTH SCH (07:13)
[2024-11-10] MEDS: Lidocaine 1% PF 2 ML SDV INJECT SCH (07:13)
[2024-11-10] MEDS: Cefuroxime 10 MG/ML SYRINGE EYERT SCH (07:13)
[2024-11-10] MEDS: Pilocarpine 4% Ophth Soln 15 ML Bot EYERT SCH (07:14)
[2024-11-10] MEDS: Polymyxin B/Trimethoprim 10 ML Bottle EYERT SCH (07:14)
[2024-11-10 10:10] VITALS: BP 110/59; PULSE 80
[2024-11-10] MEDS: Tropicamide 1% Ophth Soln 3 ML Bottle EYERT SCH (10:17)
== END 2024-11-10 11:51 ==
LOC: JD.SDS 08:51
PROVIDERS: ATTEND Ophthalmology
DX: H25.811 Combined forms of age-related cataract, right eye (principal); H52.31 Anisometropia; H16.223 Keratoconjunctivitis sicca, not specified as Sjogren's, bilateral; H02.834 Dermatochalasis of left upper eyelid; H02.831 Dermatochalasis of right upper eyelid; H57.813 Brow ptosis, bilateral; H43.813 Vitreous degeneration, bilateral; I25.10 Atherosclerotic heart disease of native coronary artery without angina pectoris; I10 Essential (primary) hypertension; E03.9 Hypothyroidism, unspecified; Z96.1 Presence of intraocular lens; Z88.8 Allergy status to other drugs, medicaments and biological substances; Z79.890 Hormone replacement therapy; Z79.899 Other long term (current) drug therapy
CPT/HCPCS: 66984; A9270; J0697; J3490